=== PATIENT | female | born 1975 | race Caucasian/White ===

== ENCOUNTER 2022-08-18 03:27 | Outpatient (CLI) | payer SELFPAY | END 2022-08-18 03:28 | disposition home or self-care (01) | LOC: AMB 09-16 11:19 | PROVIDERS: Visit Provider Family Medicine | DX: S59.911A Unspecified injury of right forearm, initial encounter (principal); W10.9XXA Fall (on) (from) unspecified stairs and steps, initial encounter; Z91.81 History of falling; Y92.9 Unspecified place or not applicable | CPT/HCPCS: A0425; A0429 ==

== ENCOUNTER 2022-08-18 04:16 | Emergency (ER) | payer SELFPAY ==
[2022-08-18] VITALS (29 sets, daily range): BP systolic 108–169; BP diastolic 67–111; PULSE 85–128; RESP 12–18; TEMP 36.1–37.6; O2SAT 89–102
--- NOTE | 2022-08-18 04:35 | CRLHL7_ITS ---
For Patients: As a result of the Century Cures Act, medical imaging exams and procedure reports are released immediately into your electronic medical record. You may view this report before your referring provider. If you have questions, please contact your health care provider. INDICATION: Deformity COMPARISON: None available. TECHNIQUE: AP and lateral views of the right humerus were obtained for a total of two views. There is no sign of humeral shaft fracture. There is anterior and inferior dislocation of the humeral head, with no sign of Hill-Sachs or bony Bankart fracture. The elbow is seen on the lateral view in the oblique projection. It is grossly normal in appearance. The soft tissue planes are preserved. There is no opaque foreign body. IMPRESSION: Anterior and inferior dislocation of the humeral head with no sign of associated fracture. Dictated by Mendez Sumner MD @ 08/18/2022 6:48:15 AM (Electronically Signed)
--- NOTE | 2022-08-18 04:35 | CRLHL7_ITS ---
For Patients: As a result of the Cures Act, medical imaging exams and procedure reports are released immediately into your electronic medical record. You may view this report before your referring provider. If you have questions, please contact your health care provider. INDICATION: Deformity postreduction. COMPARISON: Right humerus from earlier today at inferior 0435 hours TECHNIQUE: The right shoulder was examined with AP internal and external rotation views for a total of two views at 0520 hours. FINDINGS: There is now anatomic alignment of the humeral head and glenoid. The osseous structures are in anatomic alignment without fracture or dislocation. The visualized chest is clear. IMPRESSION: Satisfactory appearance status post reduction of previously seen shoulder dislocation. Dictated by Mendez Sumner MD @ 08/18/2022 6:50:20 AM (Electronically Signed)
[2022-08-18] MEDS: ONDANSETRON 2 MG/ML inj 4 MG IVP (04:41)
[2022-08-18] MEDS: PROPOFOL 10 MG/ML INJ 150 MG IV (05:00)
[2022-08-18] MEDS: SUCCINYLCHOLINE 20 MG/ML INJ 120 MG IVP (05:00)
[2022-08-18 05:01] LABS: Basophils Absolute Auto 0.04 K/uL (0.00-0.30); Basophils Percent Auto 0.4 % (0.0-3.0); Eosinophils Absolute Auto 0.08 K/uL (0.00-0.50); Eosinophils Percent Auto 0.8 % (0.0-7.0); Hematocrit 36.3 % (33.0-51.0); Hemoglobin* 11.1 gm/dL (12.0-16.0); Immature Granulocytes Abs Auto 0.02 K/uL (0.00-0.30); Lymphocytes Absolute Auto 2.89 K/uL (0.90-2.90); Lymphocytes Percent Auto 27.4 % (20-44); Mean Corpuscular HGB Conc 31 gm/dL (32-36); Mean Corpuscular Hemoglobin 22 pg (26-34); Mean Corpuscular Volume 73 fL (80-100); Monocytes Percent Auto 5.7 % (0.0-11.0); Neutrophils Absolute Auto 6.93 K/uL (1.7-7.0); Neutrophils Percent Auto 65.5 % (42.0-72.0); Platelet Count* 435 K/uL (140-440); Red Blood Count 4.98 m/uL (4.00-5.20); Slide Review Reflex No; White Blood Count* 10.56 K/uL (4.50-11.00)
[2022-08-18] MEDS: KETAMINE HCL 100 MG/ML inj 20 MG IV (05:13)
--- NOTE | 2022-08-18 05:18 | CRLHL7_ITS ---
For Patients: As a result of the Century Cures Act, medical imaging exams and procedure reports are released immediately into your electronic medical record. You may view this report before your referring provider. If you have questions, please contact your health care provider. Indication: Status post reduction of dislocated shoulder with decreased pulses in the right upper extremity. Evaluate for dissection. Technique: CT angiography is performed during the uneventful intravenous administration of 95 cc of Isovue 370 while spiral acquisition is obtained. 1.5 millimeter thick axial, sagittal, and coronal sections are obtained. Please note that all CT scans at this facility use dose modulation, iterative reconstruction, and/or weight-based dosing when appropriate to reduce radiation dose to as low as reasonably achievable. Comparison: Plain films of the shoulder from today. Findings: The right subclavian and right axillary artery are widely patent, with no sign of dissection or occlusion. There is a subtle, comminuted, nondisplaced fracture of the superior-anterior aspect of the right humeral head, not evident on the previous plain films even in retrospect. There is no sign of a bony Bankart fracture. The rest of the osseous structures of the shoulder are normal in appearance. There is anatomic alignment of the humeral head and glenoid. The visualized upper chest is clear. Impression: Widely patent right subclavian and axillary arteries with no sign of occlusion or dissection. Acute, comminuted, nondisplaced fracture of the anterior-superior aspect of the right humeral head. Please note that all CT scans at this facility use dose modulation, iterative reconstruction, and/or weight-based dosing when appropriate to reduce radiation dose to as low as reasonably achievable. Dictated by Mendez Sumner MD @ 08/18/2022 7:04:35 AM (Electronically Signed)
--- NOTE | 2022-08-18 05:20 | CT_ITS ---
Patient: SMILEY YANEZ Facility:?[facility] Patient ID:?[id number] Site Patient ID:?[id number]. Site :?[id number] Study:?CT-Spine Cervical -08/18/2022 6:21:14 AM Ordering Physician:Cal Garicas Final Report: CT CERVICAL SPINE DATE: 08/18/2022 HISTORY: Trauma. TECHNIQUE: Helical CT acquisition of the cervical spine was performed. Orozco and sagittal reformations were performed and interpreted. COMPARISON: None. FINDINGS: Images are degraded by patient motion. There is no evidence of acute displaced fracture or dislocation of the cervical spine. There is straightening of the normal cervical lordosis. The vertebral body height is maintained. There are scattered degenerative changes in the cervical spine. The visualized prevertebral soft tissues are unremarkable. The visualized lung apices are unremarkable. IMPRESSION: No acute displaced fracture or dislocation of the cervical spine. Please note that all CT scans at this facility use dose modulation, iterative reconstruction, and/or weight-based dosing when appropriate to reduce radiation dose to as low as reasonably achievable. Dictated by: Vickie Falcon MD @ 08/18/2022 06:47:05 Signed by:?Vickie Falcon MD @08/18/2022 6:47:05 AM (Electronic Signature)
--- NOTE | 2022-08-18 05:20 | CT_ITS ---
Patient: SMILEY YANEZ Facility:?[facility] Patient ID:?[id number] Site Patient ID:?[id number]. Site :?[id number] Study:?CT-Head -08/18/2022 6:21:12 AM Ordering Physician:Cal Garcias Final Report: CT HEAD DATE: 08/18/2022 CLINICAL HISTORY: Patient with fall. TECHNIQUE: Standard CT scanning of the head was performed. COMPARISON: None. FINDINGS: There is no intracranial hemorrhage. The lance matter-white matter differentiation is intact. The size of the ventricular system is normal for age. There is no mass effect or midline shift. The calvarium is unremarkable. The orbits are unremarkable. The paranasal sinuses are unremarkable. The mastoid air cells are unremarkable. The soft tissues are unremarkable. IMPRESSION: Normal head CT. Please note that all CT scans at this facility use dose modulation, iterative reconstruction, and/or weight-based dosing when appropriate to reduce radiation dose to as low as reasonably achievable. Dictated by: Vickie Falcon MD @ 08/18/2022 06:43:32 Signed by:?Vickie Falcon MD @08/18/2022 6:43:32 AM (Electronic Signature)
[2022-08-18 05:21] LABS: Albumin* 4.8 g/dL (3.3-5.0); Chloride* 107 mmol/L (96-114); Sodium* 143 mmol/L (135-149)
--- NOTE | 2022-08-18 05:21 | ED.FALL ---
HPI - Fall General Date Seen: 08/18/22 <Katerine Godinez MD - Last Filed: 08/18/22 09:05> Chief Complaint: Fall/Minor Trauma <Katerine Godinez MD - Last Filed: 08/18/22 09:05> Stated Complaint: fall <Katerine Godinez MD - Last Filed: 08/18/22 09:05> Time Seen by Provider: 08/18/22 04:35 <Katerine Godinez MD - Last Filed: 08/18/22 09:05> Source: patient, family, EMS, RN notes reviewed, old records reviewed and science interpreter <Katerine Godinez MD - Last Filed: 08/18/22 09:05> Mode of arrival: EMS <Katerine Godinez MD - Last Filed: 08/18/22 09:05> Limitations: language barrier and altered mental status (Intoxication) <Katerine Godinez MD - Last Filed: 08/18/22 09:05> History of Present Illness HPI Narrative: Ileana is a 47-year-old female who tells me that she is usually healthy who comes to the emergency room via EMS for a right shoulder dislocation/injury as well as intoxication. Patient was using alcohol tonight. This is not something that she does often according to a family friend. She fell going into her trailer at [facility] which caused a laceration to her right mormon as well as an injury to her right arm. She did not lose consciousness and she has not had any vomiting. EMS notes that patient has a cold right forearm and patient must hold her arm in abduction and external rotation. She says she cannot feel her feet hand or move it. I am unsure what time this occurred but I do meet patient upon EMS arrival. Patient denies back pain hip pain headache but does state her neck hurts. Patient notes that she cannot feel her arm or her hand. She states it feels like it is sleeping. She also is unable to move her fingers or wrist. <Katerine Godinez MD - Last Filed: 08/18/22 09:05> MD complaint: fall <Katerine Godinez MD - Last Filed: 08/18/22 09:05> Fall witnessed: yes, by family <Katerine Godinez MD - Last Filed: 08/18/22 09:05> Place fall occurred: home <Katerine Godinez MD - Last Filed: 08/18/22 09:05> Loss of consciousness: No <Katerine Godinez MD - Last Filed: 08/18/22 09:05> Related Data Home Medications: Home Medications Medication Instructions Recorded Confirmed No Known Home Medications 08/18/22 08/18/22 <Katerine Godinez MD - Last Filed: 08/18/22 09:05> Allergies/Adverse Reactions: Allergies Allergy/AdvReac Type Severity Reaction Status Date / Time No Known Drug Allergies Allergy Verified 08/18/22 04:39 <Katerine Godinez MD - Last Filed: 08/18/22 09:05> Review of Systems Status of ROS: Reports: 10 or more systems reviewed and unremarkable except as noted in History and below <Katerine Godinez MD - Last Filed: 08/18/22 09:05> Const: Denies: fever or chills <Katerine Godinez MD - Last Filed: 08/18/22 09:05> Eyes: Denies: change in vision or blurry vision <Katerine Godinez MD - Last Filed: 08/18/22 09:05> ENMT: Reports: neck pain (When asked.); Denies: throat pain or difficulty swallowing <Katerine Godinez MD - Last Filed: 08/18/22 09:05> Cardio: Denies: chest pain, palpitations or shortness of breath with exertion <Katerine Godinez MD - Last Filed: 08/18/22 09:05> Resp: Denies: shortness of breath, cough or wheezing <Katerine Godinez MD - Last Filed: 08/18/22 09:05> GI: Denies: abdominal pain, nausea, vomiting or difficulty swallowing <Katerine Godinez MD - Last Filed: 08/18/22 09:05> Musculo: Reports: neck pain (When asked.) <Katerine Godinez MD - Last Filed: 08/18/22 09:05> Neuro: Reports: numbness in extremities; Denies: headache <Katerine Godinez MD - Last Filed: 08/18/22 09:05> Allergy/Immuno: Denies: wheezing <Katerine Godinez MD - Last Filed: 08/18/22 09:05> [facility] Social History: Social History Smoking Status: Unknown if ever smoked Do you use any of these nicotine containing products: None How often do you have a drink containing alcohol: 2-3 times a week How often do you have six or more drinks on one occasion: Never AUDIT-C Alcohol total score: 3 Non-prescribed substance use: denies use service: No <Katerine Godinez MD - Last Filed: 08/18/22 09:05> Exam Const: Vital Signs, click to edit/add: Vital Signs - 24 hr 08/18/22 04:17 08/18/22 04:47 08/18/22 06:47 Temperature 97.0 F L Pulse Rate [Left P ulse Oximeter] 85 Respiratory Rate 18 Blood Pressure [Le ft Forearm] 143/94 H Pulse Oximetry 98 99 97 Oxygen Delivery Me thod Room Air Room Air Oxygen Flow Rate 08/18/22 04:39 08/18/22 05:15 08/18/22 05:10 Temperature Pulse Rate [Left P ulse Oximeter] 128 H 128 H Respiratory Rate 16 18 Blood Pressure [Le ft Forearm] 154/106 H 169/111 H Pulse Oximetry 98 100 100 Oxygen Delivery Me thod Room Air Nasal Cannula Ambu-Bag Oxygen Flow Rate 2 08/18/22 05:05 08/18/22 06:10 08/18/22 04:57 Temperature Pulse Rate [Left P ulse Oximeter] 126 H 116 H 125 H Respiratory Rate 18 16 18 Blood Pressure [Le ft Forearm] 152/102 H 142/89 H 144/89 H Pulse Oximetry 100 99 99 Oxygen Delivery Me thod Ambu-Bag Room Air Room Air Oxygen Flow Rate 08/18/22 05:03 08/18/22 04:45 08/18/22 07:31 Temperature Pulse Rate [Left P ulse Oximeter] 128 H 102 H Respiratory Rate 18 18 Blood Pressure [Le ft Forearm] 123/77 119/74 Pulse Oximetry 100 99 97 Oxygen Delivery Me thod Ambu-Bag Room Air Oxygen Flow Rate 08/18/22 07:00 08/18/22 06:10 08/18/22 09:30 Temperature Pulse Rate [Left P ulse Oximeter] 108 H 116 H 102 H Respiratory Rate 12 Blood Pressure [Le ft Forearm] 135/79 142/89 H 127/80 Pulse Oximetry 99 100 102 H Oxygen Delivery Me thod Room Air Room Air Room Air Oxygen Flow Rate 08/18/22 09:00 08/18/22 08:30 08/18/22 08:00 Temperature Pulse Rate [Left P ulse Oximeter] 97 87 100 Respiratory Rate Blood Pressure [Le ft Forearm] 108/71 112/70 116/67 Pulse Oximetry 97 92 Oxygen Delivery Me thod Room Air Room Air Oxygen Flow Rate <Katerine Godinez MD - Last Filed: 08/18/22 09:05> Vital Signs, click to edit/add: Vital Signs - 24 hr 08/18/22 04:17 08/18/22 04:47 08/18/22 06:47 Temperature 97.0 F L Pulse Rate [Left P ulse Oximeter] 85 Respiratory Rate 18 Blood Pressure [Le ft Forearm] 143/94 H Pulse Oximetry 98 99 97 Oxygen Delivery Me thod Room Air Room Air Oxygen Flow Rate 08/18/22 04:39 08/18/22 05:15 08/18/22 05:10 Temperature Pulse Rate [Left P ulse Oximeter] 128 H 128 H Respiratory Rate 16 18 Blood Pressure [Le ft Forearm] 154/106 H 169/111 H Pulse Oximetry 98 100 100 Oxygen Delivery Me thod Room Air Nasal Cannula Ambu-Bag Oxygen Flow Rate 2 08/18/22 05:05 08/18/22 06:10 08/18/22 04:57 Temperature Pulse Rate [Left P ulse Oximeter] 126 H 116 H 125 H Respiratory Rate 18 16 18 Blood Pressure [Le ft Forearm] 152/102 H 142/89 H 144/89 H Pulse Oximetry 100 99 99 Oxygen Delivery Me thod Ambu-Bag Room Air Room Air Oxygen Flow Rate 08/18/22 05:03 08/18/22 04:45 08/18/22 07:31 Temperature Pulse Rate [Left P ulse Oximeter] 128 H 102 H Respiratory Rate 18 18 Blood Pressure [Le ft Forearm] 123/77 119/74 Pulse Oximetry 100 99 97 Oxygen Delivery Me thod Ambu-Bag Room Air Oxygen Flow Rate 08/18/22 07:00 08/18/22 06:10 08/18/22 09:30 Temperature Pulse Rate [Left P ulse Oximeter] 108 H 116 H 102 H Respiratory Rate 12 Blood Pressure [Le ft Forearm] 135/79 142/89 H 127/80 Pulse Oximetry 99 100 102 H Oxygen Delivery Me thod Room Air Room Air Room Air Oxygen Flow Rate 08/18/22 09:00 08/18/22 08:30 08/18/22 08:00 Temperature Pulse Rate [Left P ulse Oximeter] 97 87 100 Respiratory Rate Blood Pressure [Le ft Forearm] 108/71 112/70 116/67 Pulse Oximetry 97 92 Oxygen Delivery Me thod Room Air Room Air Oxygen Flow Rate <Santa Monreal MD - Last Filed: 08/18/22 10:53> Documenting provider has reviewed patient's vital signs: yes <Katerine Godinez MD - Last Filed: 08/18/22 09:05> Exam limitations: altered mental status (Intoxication.) and language barrier (Family friend initially helps. Formal science interpreter then called) <Katerine Godinez MD - Last Filed: 08/18/22 09:05> General appearance: cooperative, well kempt and in distress (With movement of right arm) <Katerine Godinez MD - Last Filed: 08/18/22 09:05> Orientation/consciousness: Yes awake, Yes oriented to person and Yes oriented to place <Katerine Godinez MD - Last Filed: 08/18/22 09:05> HENMT: Common normals: normocephalic, external ears normal and external nose normal <Katerine Godinez MD - Last Filed: 08/18/22 09:05> Head and scalp: normocephalic and laceration (1 cm laceration to the right mormon. Metastatic); no Castaneda's sign <Katerine Godinez MD - Last Filed: 08/18/22 09:05> Face and sinus: normal facial exam <Katerine Godinez MD - Last Filed: 08/18/22 09:05> Nose: external nose normal <Katerine Godinez MD - Last Filed: 08/18/22 09:05> External ear: external ears normal <Katerine Godinez MD - Last Filed: 08/18/22 09:05> Mouth: oral and palatal mucosa normal <Katerine Godinez MD - Last Filed: 08/18/22 09:05> Teeth and gingiva: gingiva abnormal (Hyperplasia) <Katerine Godinez MD - Last Filed: 08/18/22 09:05> Throat: posterior oropharynx normal <Katerine Godinez MD - Last Filed: 08/18/22 09:05> Eye: Common normals: PERRL (Slightly sluggish) and EOMs intact bilaterally <Katerine Godinez MD - Last Filed: 08/18/22 09:05> General eye: normal appearance of both eyes <Katerine Godinez MD - Last Filed: 08/18/22 09:05> Pupil: PERRL (Slightly sluggish) <Katerine Godinez MD - Last Filed: 08/18/22 09:05> Neck & C-Spine: Common normals: no lymphadenopathy and supple <Katerine Godinez MD - Last Filed: 08/18/22 09:05> General: normal visual inspection and trachea midline <Katerine Godinez MD - Last Filed: 08/18/22 09:05> Other: Attempts at collar placement not successful. Appeared to increase patient discomfort and thus we did place blocks on each side of her head. <Katerine Godinez MD - Last Filed: 08/18/22 09:05> Resp: Common normals: normal respiratory effort and clear to auscultation bilaterally <MD Joss Lemus Last Filed: 08/18/22 09:05> Auscultation: clear to auscultation bilaterally <Katerine Godinez MD - Last Filed: 08/18/22 09:05> Cardio: Common normals: regular rate and regular rhythm <MD Joss Lemus Last Filed: 08/18/22 09:05> Rate: regular rate <MD Joss Lemus Last Filed: 08/18/22 09:05> Rhythm: regular rhythm <MD Joss Lemus Last Filed: 08/18/22 09:05> GI: Common normals: soft to palpation and non-tender <MD Joss Lemus Last Filed: 08/18/22 09:05> Palpation: soft <Katerine Godinez MD - Last Filed: 08/18/22 09:05> : Common normals: no CVA tenderness <Katerine Godinez MD - Last Filed: 08/18/22 09:05> Bladder/kidney exam: no CVA tenderness; no CVA tenderness <Katerine Godinez MD - Last Filed: 08/18/22 09:05> Back & Pelvis: Common normals: no CVA tenderness, thoracic and lumbar spine normal to inspection and no thoracic nor lumbar tenderness <Katerine Godinez MD - Last Filed: 08/18/22 09:05> General back: no CVA tenderness <Katerine Godinez MD - Last Filed: 08/18/22 09:05> Extremity: General: normal exam except as noted <Katerine Godinez MD - Last Filed: 08/18/22 09:05> Right upper extremity: shoulder joint Right shoulder joint exam: neurovascular exam <Katerine Godinez MD - Last Filed: 08/18/22 09:05> Other: Right arm is held in abduction and external rotation. Forearm and hand cold to the touch. Pulse is present at the radius. Patient unable to move hand or fingers wrist or elbow. <Katerine Godinez MD - Last Filed: 08/18/22 09:05> Neuro: Sensorium/orientation: awake, oriented to person and oriented to place <Katerine Godinez MD - Last Filed: 08/18/22 09:05> Speech: abnormal speech Details: slurred <Katerine Godinez MD - Last Filed: 08/18/22 09:05> Psych: Common normals: cooperative <Katerine Godinez MD - Last Filed: 08/18/22 09:05> Appearance: well kempt <Katerine Godinez MD - Last Filed: 08/18/22 09:05> Attitude: calm <Katerine Godinez MD - Last Filed: 08/18/22 09:05> Activity/motor behavior: appropriate eye contact <MD Joss Lemus Last Filed: 08/18/22 09:05> Speech: slurred <Katerine Godinez MD - Last Filed: 08/18/22 09:05> Thought process: circumstantial <Katerine Godinez MD - Last Filed: 08/18/22 09:05> Thought content: normal thought content <Katerine Godinez MD - Last Filed: 08/18/22 09:05> Attention/concentration: concentration grossly intact <Katerine Godinez MD - Last Filed: 08/18/22 09:05> Memory/cognition: memory grossly intact <Katerine Godinez MD - Last Filed: 08/18/22 09:05> Insight: fair <Katerine Godinez MD - Last Filed: 08/18/22 09:05> Judgement: fair <Katerine Godinez MD - Last Filed: 08/18/22 09:05> Course Course Hospital Course: At this time patient is presenting with what appears to be an inferior shoulder dislocation. Likely has axillary nerve and possibly arterial injury. Anesthesia contacted as we need to expedite reduction of this dislocation. At this time would also like to expedite head and cervical spine CTs given the circumstances. However I feel that the shoulder dislocation takes precedence at this time. Will also check laboratory values to include CBC, comprehensive panel, EtOH, urinalysis, and serum HCG. Patient will be placed on monitor and have IV placed. Orthopedics will also be consulted. Well patient has a friend of the family doing some interpretation for informed consent of intubation, deep sedation, reduction of shoulder dislocation I did call on the official science interpreter for discussion regarding risks benefits. Patient unable to sign form as her right arm is compromised with injury and her left arm has a small IV that we would not want her to be moving quite a bit. She does agree in the presence of witnesses to go through with what we are suggesting. <Katerine Godinez MD - Last Filed: 08/18/22 09:05> Reevaluation(s) Reevaluation #1: Post reductio films are reassuring and appear to show successful reduction. Patient still has no motor or sensation right arm and hand. <Katerine Godinez MD - Last Filed: 08/18/22 09:05> Time: 07:45 <Katerine Godinez MD - Last Filed: 08/18/22 09:05> Reevaluation #3: Patient noted to have regained sensation of the volar and dorsal forearm as well as the dorsal hand. She is still lacking motor of the wrist fingers and hand. <Katerine Godinez MD - Last Filed: 08/18/22 09:05> Additional Reevaluation(s): patient was re-evaluated at 10:00 a.m., she still has not regained any motor function of the hand. She does have motor function at the shoulder. I did speak to Dr. West at [facility] who recommended patient be transferred for further evaluation. I discussed transferring with the patient as well as her , they prefer to go by private vehicle. Therefore patient is discharged from our ER as a transfer to [facility] for further evaluation given complete lack of motor function of the right hand. <Santa Monreal MD - Last Filed: 08/18/22 10:53> Consultations Consultation #1: Orthopedics-discussed urgency of reduction. Requested further advice on the use of CTA to evaluate for large vessel injury. Ortho agrees with need for CTA and suggests transfer for any injury. <Katerine Godinez MD - Last Filed: 08/18/22 09:05> Consultation #2: Anesthesia-patient has been eating and drinking and is not in p.o.. Given her alcohol level is 0.35 I think she represents high risk of vomiting and potential aspiration. Anesthesia notes they are suggesting intubation. We used propofol and succinylcholine. Will have fentanyl on standby to be used as needed. <Katerine Godinez MD - Last Filed: 08/18/22 09:05> Consultation #3: [facility]-did speak with ED physician in regards to patient's persisting neurological symptoms. At that timed sensation had not returned. We discussed possible role of steroids but there is no role for steroids in this particular instance. They do suggest monitoring over the next few hours and if motor and sensation do not return suggest calling them back. Otherwise plan if motor and station returns is to discharge home with follow-up with orthopedics. <Katerine Godinez MD - Last Filed: 08/18/22 09:05> Vital Signs Vital signs: Initial Vital Signs Temperature 97.0 F L 08/18/22 04:17 Temperature Source Temporal Artery Scan 08/18/22 04:17 Pulse Rate 85 08/18/22 04:17 Pulse Rhythm 08/18/22 04:17 Respiratory Rate 18 08/18/22 04:17 Blood Pressure 143/94 H 08/18/22 04:17 Blood Pressure Mean 110 08/18/22 04:17 Blood Pressure Position Supine 08/18/22 04:17 Pulse Oximetry 98 08/18/22 04:17 Oxygen Delivery Method 08/18/22 04:17 Vital Signs Temperature 97.0 F L 08/18/22 04:17 Pulse Rate 85 08/18/22 04:17 Respiratory Rate 18 08/18/22 04:17 Blood Pressure 143/94 H 08/18/22 04:17 Pulse Oximetry 98 08/18/22 04:17 Oxygen Delivery Method 08/18/22 04:17 Temperature 97.0 F L 08/18/22 04:17 Pulse Rate 102 H 08/18/22 09:30 Respiratory Rate 18 08/18/22 07:31 Blood Pressure 127/80 08/18/22 09:30 Pulse Oximetry 102 H 08/18/22 09:30 Oxygen Delivery Method 08/18/22 09:30 Oxygen Flow Rate 2 08/18/22 05:15 <Katerine Godinez MD - Last Filed: 08/18/22 09:05> Initial Vital Signs Temperature 97.0 F L 08/18/22 04:17 Temperature Source Temporal Artery Scan 08/18/22 04:17 Pulse Rate 85 08/18/22 04:17 Pulse Rhythm 08/18/22 04:17 Respiratory Rate 18 08/18/22 04:17 Blood Pressure 143/94 H 08/18/22 04:17 Blood Pressure Mean 110 08/18/22 04:17 Blood Pressure Position Supine 08/18/22 04:17 Pulse Oximetry 98 08/18/22 04:17 Oxygen Delivery Method 08/18/22 04:17 Vital Signs Temperature 97.0 F L 08/18/22 04:17 Pulse Rate 85 08/18/22 04:17 Respiratory Rate 18 08/18/22 04:17 Blood Pressure 143/94 H 08/18/22 04:17 Pulse Oximetry 98 08/18/22 04:17 Oxygen Delivery Method 08/18/22 04:17 Temperature 97.0 F L 08/18/22 04:17 Pulse Rate 102 H 08/18/22 09:30 Respiratory Rate 18 08/18/22 07:31 Blood Pressure 127/80 08/18/22 09:30 Pulse Oximetry 102 H 08/18/22 09:30 Oxygen Delivery Method 08/18/22 09:30 Oxygen Flow Rate 2 08/18/22 05:15 <Santa Monreal MD - Last Filed: 08/18/22 10:53> MDM - Fall MDM Narrative Medical decision making narrative: 1. Right shoulder dislocation with neurological and circulatory compromise-initially patient has a cold forearm and hand. Unable to move at the wrist or the hand. EMS notes that when they tried to move patient's arm or adduct arm, pulse was lost. Successful reduction with this assistance of Anesthesia. Pulse immediately strong. CT angiogram with no evidence of vessel compromise. 2. Axillary nerve injury- Patient initially had no improvement in her motor or sensation post reduction. At 0745 it is noted that her sensation is starting to return. However still persisting lack of motor movement at wrist and hands at this time. . Patient will be monitored for continued improvement we are hoping. Will consult with [facility] again, Dr. West ED physician if patient does not have return of motor function. I did discuss possibility of permanent nerve injury with this patient via official science interpreter. If she has improvement she will be discharged home with a shoulder immobilizer, Creswell for pain control, and directions for follow-up with orthopedics. She may also ice her axilla and shoulder as needed for pain. 3. Humeral head fracture-this is nondisplaced. Initial films did not show this injury but CT angiogram did. Discussed with patient. Patient may use Creswell 5/325, 1-2 tablets p.o. q.4-6 hours p.r.n. 18. Via CEINT. 4. Alcohol intoxication-patient has an alcohol level of 0.35. Will give 1 L normal saline. Zofran 4 mg given upon patient arrival. Discussed with patient's importance of sub staining from alcohol while using narcotic pain medications. She denies history of withdrawal. She denies daily drinking. LFTs within normal limits. 1 L of normal saline given in the ED. 5. Head laceration-initial steps to suture laceration. However, I do think that gluing would give similar result. Thus this is cleansed explored and Dermabond is placed with good wound closure. Will check on tetanus status. 4. Disposition -patient will be discharged home should she start noting improvement of motor function of the right wrist and hand. This patient is signed out to my partner Dr. Monreal for disposition. <Katerine Godinez MD - Last Filed: 08/18/22 09:05> 1. Right shoulder dislocation with neurological and circulatory compromise-initially patient has a cold forearm and hand. Unable to move at the wrist or the hand. EMS notes that when they tried to move patient's arm or adduct arm, pulse was lost. Successful reduction with this assistance of Anesthesia. Pulse immediately strong. CT angiogram with no evidence of vessel compromise. 2. Axillary nerve injury- Patient initially had no improvement in her motor or sensation post reduction. At 0745 it is noted that her sensation is starting to return. However still persisting lack of motor movement at wrist and hands at this time. . Patient will be monitored for continued improvement we are hoping. Will consult with [facility] again, Dr. West ED physician if patient does not have return of motor function. I did discuss possibility of permanent nerve injury with this patient via official science interpreter. If she has improvement she will be discharged home with a shoulder immobilizer, Creswell for pain control, and directions for follow-up with orthopedics. She may also ice her axilla and shoulder as needed for pain. 3. Humeral head fracture-this is nondisplaced. Initial films did not show this injury but CT angiogram did. Discussed with patient. Patient may use Creswell 5/325, 1-2 tablets p.o. q.4-6 hours p.r.n. 18. Via CEINT. 4. Alcohol intoxication-patient has an alcohol level of 0.35. Will give 1 L normal saline. Zofran 4 mg given upon patient arrival. Discussed with patient's importance of sub staining from alcohol while using narcotic pain medications. She denies history of withdrawal. She denies daily drinking. LFTs within normal limits. 1 L of normal saline given in the ED. 5. Head laceration-initial steps to suture laceration. However, I do think that gluing would give similar result. Thus this is cleansed explored and Dermabond is placed with good wound closure. Will check on tetanus status. 4. Disposition - Patient transferred to [facility] via private vehicle secondary to lack of motor function of right hand. Her driving. <Santa Monreal MD - Last Filed: 08/18/22 10:53> Medical Records Attestation: I reviewed the patient's medical records. <Katerine Godinez MD - Last Filed: 08/18/22 09:05> Lab Data Attestation: I reviewed the patient's lab results. <Katerine Godinez MD - Last Filed: 08/18/22 09:05> Labs: Lab Results 08/18/22 08/18/22 08/18/22 Range/Units 04:40 04:40 06:40 WBC 10.56 (4.50-11.00) K/uL RBC 4.98 (4.00-5.20) m/uL Hgb 11.1 L (12.0-16.0) gm/dL Hct 36.3 (33.0-51.0) % MCV 73 L (80-100) fL MCH 22 L (26-34) pg MCHC 31 L (32-36) gm/dL RDW Coeff of Zoë 18.0 H (11.5-15.5) % Plt Count 435 (140-440) K/uL Neut % (Auto) 65.5 (42.0-72.0) % Lymph % (Auto) 27.4 (20-44) % Gove % (Auto) 5.7 (0.0-11.0) % Eos % (Auto) 0.8 (0.0-7.0) % Baso % (Auto) 0.4 (0.0-3.0) % Neut # (Auto) 6.93 (1.7-7.0) K/uL Lymph # (Auto) 2.89 (0.90-2.90) K/uL Gove # (Auto) 0.60 (0.00-0.90) K/UL Eos # (Auto) 0.08 (0.00-0.50) K/uL Baso # (Auto) 0.04 (0.00-0.30) K/uL Abs Immat Gran (auto) 0.02 (0.00-0.30) K/uL Sodium 143 (135-149) mmol/L Potassium 3.4 L (3.6-5.1) mmol/L Chloride 107 (96-114) mmol/L Carbon Dioxide 18 L (20-32) mmol/L BUN 5 (5-24) mg/dL Creatinine 0.4 L (0.5-1.5) mg/dL Estimated GFR 124 ml/min Glucose 138 H (60-115) mg/dL Calcium 8.7 (8.4-10.6) mg/dL Total Bilirubin 0.1 (0.1-1.5) mg/dL AST 33 (12-35) U/L ALT 29 (4-35) U/L Alkaline Phosphatase 135 (40-150) U/L Total Protein 9.3 H (6.0-8.3) g/dL Albumin 4.8 (3.3-5.0) g/dL HCG, Qual (Negative) Urine Color Yellow (Yellow) Urine Appearance Clear (Clear) Urine pH 5.5 (5.0-8.5) Ur Specific [place] 1.010 (1.000-1.030) Urine Protein Negative (Negative) Urine Glucose (UA) Negative (Negative) Urine Ketones Negative (Negative) Urine Blood 1+ A (Negative) Urine Nitrite Negative (Negative) Urine Bilirubin Negative (Negative) Urine Urobilinogen 0.2 (0.2-1.0) Ur Leukocyte Esterase Negative (Negative) Urine RBC 0-2 (0-2) Urine WBC 0-2 (0-5) Ur Squamous Epith Cells Few (None-Few) Other Sediment FEW YEAST (None) Urine Bacteria Few A (None) Urine Opiates Screen (Negative) Ur Oxycodone Screen (Negative) Urine Methadone Screen (Negative) Ur Propoxyphene Screen (Negative) Ur Barbiturates Screen (Negative) U Tricyclic Antidepress (Negative) Ur Phencyclidine Scrn (Negative) Ur Amphetamines Screen (Negative) U Methamphetamines Scrn (Negative) U Benzodiazepines Scrn (Negative) Urine Cocaine Screen (Negative) U Marijuana (THC) Screen (Negative) Ur Drug Screen Comment Ethyl Alcohol 0.35 H* (0.01-0.03) % 08/18/22 08/18/22 Range/Units 06:40 06:40 WBC (4.50-11.00) K/uL RBC (4.00-5.20) m/uL Hgb (12.0-16.0) gm/dL Hct (33.0-51.0) % MCV (80-100) fL MCH (26-34) pg MCHC (32-36) gm/dL RDW Coeff of Zoë (11.5-15.5) % Plt Count (140-440) K/uL Neut % (Auto) (42.0-72.0) % Lymph % (Auto) (20-44) % Gove % (Auto) (0.0-11.0) % Eos % (Auto) (0.0-7.0) % Baso % (Auto) (0.0-3.0) % Neut # (Auto) (1.7-7.0) K/uL Lymph # (Auto) (0.90-2.90) K/uL Gove # (Auto) (0.00-0.90) K/UL Eos # (Auto) (0.00-0.50) K/uL Baso # (Auto) (0.00-0.30) K/uL Abs Immat Gran (auto) (0.00-0.30) K/uL Sodium (135-149) mmol/L Potassium (3.6-5.1) mmol/L Chloride (96-114) mmol/L Carbon Dioxide (20-32) mmol/L BUN (5-24) mg/dL Creatinine (0.5-1.5) mg/dL Estimated GFR ml/min Glucose (60-115) mg/dL Calcium (8.4-10.6) mg/dL Total Bilirubin (0.1-1.5) mg/dL AST (12-35) U/L ALT (4-35) U/L Alkaline Phosphatase (40-150) U/L Total Protein (6.0-8.3) g/dL Albumin (3.3-5.0) g/dL HCG, Qual Negative (Negative) Urine Color (Yellow) Urine Appearance (Clear) Urine pH (5.0-8.5) Ur Specific [place] (1.000-1.030) Urine Protein (Negative) Urine Glucose (UA) (Negative) Urine Ketones (Negative) Urine Blood (Negative) Urine Nitrite (Negative) Urine Bilirubin (Negative) Urine Urobilinogen (0.2-1.0) Ur Leukocyte Esterase (Negative) Urine RBC (0-2) Urine WBC (0-5) Ur Squamous Epith Cells (None-Few) Other Sediment (None) Urine Bacteria (None) Urine Opiates Screen Negative (Negative) Ur Oxycodone Screen Negative (Negative) Urine Methadone Screen Negative (Negative) Ur Propoxyphene Screen Negative (Negative) Ur Barbiturates Screen Negative (Negative) U Tricyclic Antidepress Negative (Negative) Ur Phencyclidine Scrn Negative (Negative) Ur Amphetamines Screen Negative (Negative) U Methamphetamines Scrn Negative (Negative) U Benzodiazepines Scrn Negative (Negative) Urine Cocaine Screen Negative (Negative) U Marijuana (THC) Screen Negative (Negative) Ur Drug Screen Comment See Note Ethyl Alcohol (0.01-0.03) % <Katerine Godinez MD - Last Filed: 08/18/22 09:05> Lab Results 08/18/22 08/18/22 08/18/22 Range/Units 04:40 04:40 06:40 WBC 10.56 (4.50-11.00) K/uL RBC 4.98 (4.00-5.20) m/uL Hgb 11.1 L (12.0-16.0) gm/dL Hct 36.3 (33.0-51.0) % MCV 73 L (80-100) fL MCH 22 L (26-34) pg MCHC 31 L (32-36) gm/dL RDW Coeff of Zoë 18.0 H (11.5-15.5) % Plt Count 435 (140-440) K/uL Neut % (Auto) 65.5 (42.0-72.0) % Lymph % (Auto) 27.4 (20-44) % Gove % (Auto) 5.7 (0.0-11.0) % Eos % (Auto) 0.8 (0.0-7.0) % Baso % (Auto) 0.4 (0.0-3.0) % Neut # (Auto) 6.93 (1.7-7.0) K/uL Lymph # (Auto) 2.89 (0.90-2.90) K/uL Gove # (Auto) 0.60 (0.00-0.90) K/UL Eos # (Auto) 0.08 (0.00-0.50) K/uL Baso # (Auto) 0.04 (0.00-0.30) K/uL Abs Immat Gran (auto) 0.02 (0.00-0.30) K/uL Sodium 143 (135-149) mmol/L Potassium 3.4 L (3.6-5.1) mmol/L Chloride 107 (96-114) mmol/L Carbon Dioxide 18 L (20-32) mmol/L BUN 5 (5-24) mg/dL Creatinine 0.4 L (0.5-1.5) mg/dL Estimated GFR 124 ml/min Glucose 138 H (60-115) mg/dL Calcium 8.7 (8.4-10.6) mg/dL Total Bilirubin 0.1 (0.1-1.5) mg/dL AST 33 (12-35) U/L ALT 29 (4-35) U/L Alkaline Phosphatase 135 (40-150) U/L Total Protein 9.3 H (6.0-8.3) g/dL Albumin 4.8 (3.3-5.0) g/dL HCG, Qual (Negative) Urine Color Yellow (Yellow) Urine Appearance Clear (Clear) Urine pH 5.5 (5.0-8.5) Ur Specific [place] 1.010 (1.000-1.030) Urine Protein Negative (Negative) Urine Glucose (UA) Negative (Negative) Urine Ketones Negative (Negative) Urine Blood 1+ A (Negative) Urine Nitrite Negative (Negative) Urine Bilirubin Negative (Negative) Urine Urobilinogen 0.2 (0.2-1.0) Ur Leukocyte Esterase Negative (Negative) Urine RBC 0-2 (0-2) Urine WBC 0-2 (0-5) Ur Squamous Epith Cells Few (None-Few) Other Sediment FEW YEAST (None) Urine Bacteria Few A (None) Urine Opiates Screen (Negative) Ur Oxycodone Screen (Negative) Urine Methadone Screen (Negative) Ur Propoxyphene Screen (Negative) Ur Barbiturates Screen (Negative) U Tricyclic Antidepress (Negative) Ur Phencyclidine Scrn (Negative) Ur Amphetamines Screen (Negative) U Methamphetamines Scrn (Negative) U Benzodiazepines Scrn (Negative) Urine Cocaine Screen (Negative) U Marijuana (THC) Screen (Negative) Ur Drug Screen Comment Ethyl Alcohol 0.35 H* (0.01-0.03) % 08/18/22 08/18/22 Range/Units 06:40 06:40 WBC (4.50-11.00) K/uL RBC (4.00-5.20) m/uL Hgb (12.0-16.0) gm/dL Hct (33.0-51.0) % MCV (80-100) fL MCH (26-34) pg MCHC (32-36) gm/dL RDW Coeff of Zoë (11.5-15.5) % Plt Count (140-440) K/uL Neut % (Auto) (42.0-72.0) % Lymph % (Auto) (20-44) % Gove % (Auto) (0.0-11.0) % Eos % (Auto) (0.0-7.0) % Baso % (Auto) (0.0-3.0) % Neut # (Auto) (1.7-7.0) K/uL Lymph # (Auto) (0.90-2.90) K/uL Gove # (Auto) (0.00-0.90) K/UL Eos # (Auto) (0.00-0.50) K/uL Baso # (Auto) (0.00-0.30) K/uL Abs Immat Gran (auto) (0.00-0.30) K/uL Sodium (135-149) mmol/L Potassium (3.6-5.1) mmol/L Chloride (96-114) mmol/L Carbon Dioxide (20-32) mmol/L BUN (5-24) mg/dL Creatinine (0.5-1.5) mg/dL Estimated GFR ml/min Glucose (60-115) mg/dL Calcium (8.4-10.6) mg/dL Total Bilirubin (0.1-1.5) mg/dL AST (12-35) U/L ALT (4-35) U/L Alkaline Phosphatase (40-150) U/L Total Protein (6.0-8.3) g/dL Albumin (3.3-5.0) g/dL HCG, Qual Negative (Negative) Urine Color (Yellow) Urine Appearance (Clear) Urine pH (5.0-8.5) Ur Specific [place] (1.000-1.030) Urine Protein (Negative) Urine Glucose (UA) (Negative) Urine Ketones (Negative) Urine Blood (Negative) Urine Nitrite (Negative) Urine Bilirubin (Negative) Urine Urobilinogen (0.2-1.0) Ur Leukocyte Esterase (Negative) Urine RBC (0-2) Urine WBC (0-5) Ur Squamous Epith Cells (None-Few) Other Sediment (None) Urine Bacteria (None) Urine Opiates Screen Negative (Negative) Ur Oxycodone Screen Negative (Negative) Urine Methadone Screen Negative (Negative) Ur Propoxyphene Screen Negative (Negative) Ur Barbiturates Screen Negative (Negative) U Tricyclic Antidepress Negative (Negative) Ur Phencyclidine Scrn Negative (Negative) Ur Amphetamines Screen Negative (Negative) U Methamphetamines Scrn Negative (Negative) U Benzodiazepines Scrn Negative (Negative) Urine Cocaine Screen Negative (Negative) U Marijuana (THC) Screen Negative (Negative) Ur Drug Screen Comment See Note Ethyl Alcohol (0.01-0.03) % <Santa Monreal MD - Last Filed: 08/18/22 10:53> Imaging Data Shoulder x-ray: Attestation: I have reviewed the pertinent imaging results. <Katerine Godinez MD - Last Filed: 08/18/22 09:05> My impression: Inferior dislocation. No evidence of fracture. <Katerine Godinez MD - Last Filed: 08/18/22 09:05> Radiologist's impression: Anterior inferior dislocation <Katerine Godinez MD - Last Filed: 08/18/22 09:05> Humerus x-ray: Attestation: I have reviewed the pertinent imaging results. <Katerine oGdinez MD - Last Filed: 08/18/22 09:05> My impression: Inferior dislocation <Katerine Godinez MD - Last Filed: 08/18/22 09:05> Radiologist's impression: TECHNIQUE: AP and lateral views of the right humerus were obtained for a total of two views. There is no sign of humeral shaft fracture. There is anterior and inferior dislocation of the humeral head, with no sign of Hill-Sachs or bony Bankart fracture. The elbow is seen on the lateral view in the oblique projection. It is grossly normal in appearance. The soft tissue planes are preserved. There is no opaque foreign body. IMPRESSION: Anterior and inferior dislocation of the humeral head with no sign of associated fracture. <Katerine Godinez MD - Last Filed: 08/18/22 09:05> CT scan - head: Attestation: I have reviewed the pertinent imaging results. <Katerine Godinez MD - Last Filed: 08/18/22 09:05> My impression: No acute bleed or fracture. <Katerine Godinez MD - Last Filed: 08/18/22 09:05> Radiologist's impression: No acute findings <Katerine Godinez MD - Last Filed: 08/18/22 09:05> Cervical spine CT: Attestation: I have reviewed the pertinent imaging results. <Katerine Godinez MD - Last Filed: 08/18/22 09:05> My impression: No acute fractures <Katerine Godinez MD - Last Filed: 08/18/22 09:05> Radiologist's impression: No acute fractures <Katerine Godinez MD - Last Filed: 08/18/22 09:05> Post reduction shoulder: Attestation: I have reviewed the pertinent imaging results. <Katerine Godinez MD - Last Filed: 08/18/22 09:05> My impression: Humeral head appears to be back in anatomical position <Katerine Godinez MD - Last Filed: 08/18/22 09:05> Radiologist's impression: Successful post reduction <Katerine Godinez MD - Last Filed: 08/18/22 09:05> CTA shoulder: My impression: I am questioning possible nondisplaced fracture of the humeral head. However this may be normal anatomy. I do not note any occlusions of the vasculature. <Katerine Godinez MD - Last Filed: 08/18/22 09:05> Radiologist's impression: The right subclavian and right axillary artery are widely patent, with no sign of dissection or occlusion. There is a subtle, comminuted, nondisplaced fracture of the superior-anterior aspect of the right humeral head, not evident on the previous plain films even in retrospect. There is no sign of a bony Bankart fracture. The rest of the osseous structures of the shoulder are normal in appearance. There is anatomic alignment of the humeral head and glenoid. The visualized upper chest is clear. Impression: Widely patent right subclavian and axillary arteries with no sign of occlusion or dissection. Acute, comminuted, nondisplaced fracture of the anterior-superior aspect of the right humeral head. <Katerine Godinez MD - Last Filed: 08/18/22 09:05> Critical Care Time Critical Care Time Critical Care Time: Yes Attestation: The patient required my highest level preparedness to intervene emergently and I personally spent this critical care time directly and personally managing the patient. This critical care time included: Obtaining a history; Examining the patient; Pulse oximetry; Ordering and reviewing of studies; Arranging urgent treatment with development of a management plan; Evaluation of patients response to treatment; Frequent reassessment discussions with other providers. This critical care time was performed to assess and manage the high probability of imminent life-threatening deterioration that could result in multiorgan failure. It was exclusive of separate billable procedures and treating other patients and teaching time. <Katerine Godinez MD - Last Filed: 08/18/22 09:05> Total Critical Care Time in Minutes: 60 <Katerine Godinez MD - Last Filed: 08/18/22 09:05> Discharge Plan Discharge Clinical Impression: Alcohol intoxication, Laceration of face, Closed inferior dislocation of right shoulder <Katerine Godinez MD - Last Filed: 08/18/22 09:05> Patient Disposition: Xfer Other <Katerine Godinez MD - Last Filed: 08/18/22 09:05> Discharge Location: [facility] <Katerine Godinez MD - Last Filed: 08/18/22 09:05> Condition: Stable <Katerine Godinez MD - Last Filed: 08/18/22 09:05> Additional Instructions: 1. Shoulder fracture and dislocation-the fracture will not need to have surgery. The dislocation has been reduced and your shoulder is back in place. However, I worry that you may have nerve damage from this injury. Wear the shoulder immobilizer for comfort. Place ice on shoulder and under your armpit when resting. Do not place on bare skin. 2. Laceration-the glue will fall off on its own in approximately 7 days. Seek medical attention for signs of infection. 3. Transfer to [facility] for further evaluation given lack of motor function to the right hand. <Katerine Godinez MD - Last Filed: 08/18/22 09:05> Prescriptions: No Action No Known Home Medications <Katerine Godinez MD - Last Filed: 08/18/22 09:05> Stand Alone Forms: [facility] Info Instructions <Katerine Godinez MD - Last Filed: 08/18/22 09:05> Procedures Laceration Laceration 1: Pre procedure diagnosis: Right mormon laceration <Katerine Godinez MD - Last Filed: 08/18/22 09:05> Post procedure diagnosis: Right mormon laceration repair <Katerine Godinez MD - Last Filed: 08/18/22 09:05> Verification/time out: correct patient, correct site, correct procedure and time out performed <Katerine Godinez MD - Last Filed: 08/18/22 09:05> Name of person performing procedure: Katerine Godinez <Katerine Godinez MD - Last Filed: 08/18/22 09:05> Site: face <Katerine Godinez MD - Last Filed: 08/18/22 09:05> Side (If applicable): right <Katerine Godinez MD - Last Filed: 08/18/22 09:05> Size (cm): 1 <Katerine Godinez MD - Last Filed: 08/18/22 09:05> Description: linear <Katerine Godinez MD - Last Filed: 08/18/22 09:05> Pre-repair: wound explored and irrigated extensively <Katerine Godinez MD - Last Filed: 08/18/22 09:05> Specimens removed (if any): Dermabond used for repair of this wound. Patient tolerated procedure well. <Katerine Godinez MD - Last Filed: 08/18/22 09:05> Conclusion: patient tolerated procedure <Katerine Godinez MD - Last Filed: 08/18/22 09:05> Orthopedic Joint Reduction Joint #1: Written consent by: patient <Katerine Godinez MD - Last Filed: 08/18/22 09:05> Time Out Performed: Yes <Katerine Godinez MD - Last Filed: 08/18/22 09:05> Side: right <Katerine Godinez MD - Last Filed: 08/18/22 09:05> Joint Reduction Location: shoulder <Katerine Godinez MD - Last Filed: 08/18/22 09:05> Manipulation used?: Yes <Katerine Godinez MD - Last Filed: 08/18/22 09:05> Analgesia: procedural sedation <Katerine Godinez MD - Last Filed: 08/18/22 09:05> Shoulder Technique Used (if applicable): traction/counter-traction <Katerine Godinez MD - Last Filed: 08/18/22 09:05> Technique used: traction/counter-traction <Katerine Godinez MD - Last Filed: 08/18/22 09:05> Post-reduction neuro vascular exam: no change <Katerine Godinez MD - Last Filed: 08/18/22 09:05> Post Reduction X-Ray Obtained: Yes <Katerine Godinez MD - Last Filed: 08/18/22 09:05> Post Reduction X-Ray Results: reduced <Katerine Godinez MD - Last Filed: 08/18/22 09:05> Splint Applied: Yes <Katerine Godinez MD - Last Filed: 08/18/22 09:05> Patient Tolerated Procedure: well <Katerine Godinez MD - Last Filed: 08/18/22 09:05>
[2022-08-18 05:22] LABS: Potassium* 3.4 mmol/L (3.6-5.1)
[2022-08-18] MEDS: KETAMINE HCL 100 MG/ML inj 10 MG IV (05:23)
[2022-08-18 05:24] LABS: Alanine Aminotransferase* 29 U/L (4-35); Alkaline Phosphatase* 135 U/L (40-150); Aspartate Amino Transferase* 33 U/L (12-35); Bilirubin Total* 0.1 mg/dL (0.1-1.5); Blood Urea Nitrogen* 5 mg/dL (5-24); Carbon Dioxide* 18 mmol/L (20-32); Creatinine* 0.4 mg/dL (0.5-1.5); Estimated Glomerular Filt Rate 124 ml/min; Total Protein* 9.3 g/dL (6.0-8.3)
[2022-08-18 05:25] LABS: Calcium* 8.7 mg/dL (8.4-10.6); Glucose* 138 mg/dL (60-115)
[2022-08-18 05:33] LABS: Ethanol* 0.35 % (0.01-0.03)
--- NOTE | 2022-08-18 05:55 | W.ANESCHARGE ---
Anesthesia Charges Start Date/Time Anesthesia Start Date: 08/18/22 Anesthesia Start Time: 04:50 Stop Date/Time Anesthesia Stop Date: 08/18/22 Anesthesia Stop Time: 05:35 Summary Emergency: Yes
[2022-08-18 06:49] LABS: Appearance Urine Clear (Clear); Bilirubin Urine Negative (Negative); Blood Urine 1+ (Negative); Color Urine Yellow (Yellow); Glucose Urine Negative (Negative); Ketones Urine Negative (Negative); Leukocyte Esterase Urine Negative (Negative); Nitrite Urine Negative (Negative); Protein Urine Negative (Negative); Urobilinogen Urine 0.2 (0.2-1.0); pH Urine 5.5 (5.0-8.5)
[2022-08-18 06:57] LABS: Amphetamine Screen Urine Negative (Negative); Barbiturate Screen Urine Negative (Negative); Benzodiazepines Screen Urine Negative (Negative); Cannabinoid Screen Urine Negative (Negative); Cocaine Screen Urine Negative (Negative); Methadone Screen Urine Negative (Negative); Methamphetamines Screen Urine Negative (Negative); Opiate Screen Urine Negative (Negative); Oxycodone Screen Urine Negative (Negative); Phencyclidine Screen Urine Negative (Negative); Tricyclic Antidepressant Urine Negative (Negative)
[2022-08-18 06:58] LABS: Bacteria Urine Few; Other Sediment Urine FEW YEAST; RBC Urine 0-2 (0-2); Squamous Epithelial Cell Urine Few (None-Few); WBC Urine 0-2 (0-5)
--- NOTE | 2022-08-18 07:00 | ED.NURSE ---
[employer] field technician via iPad throughout time in ER.
--- NOTE | 2022-08-18 07:18 | ED.NURSE ---
at 0501 ET tube at 21 at teeth. Size 7.0. Lung sounds clear, epi gastric negative. pt extubated at 0512
[2022-08-18 07:31] LABS: HCG Qualitative* Negative (Negative)
--- NOTE | 2022-08-18 07:35 | ED.NURSE ---
small laceration on the r side of her brow. this was cleansed with sterile saline and was glued per dr davenport. good approximation.
--- NOTE | 2022-08-18 07:46 | ED.NURSE ---
dr davenport explaining all that she has done this am. is understanding this, with the use of the i pad pipe threading machine operator. unable to grasp with r hand. sensation is returning some sensation as she is able to feel the touch. she is explaining that she may have permanent nerve damage. will continue to observe.
[2022-08-18] MEDS: TETANUS/DIPHTH/PERTUSSIS 0.5 ML SYRINGE IM (09:34)
--- NOTE | 2022-08-18 10:23 | ED.NURSE ---
has been up to br to void. is steady on feet. right hand continues to be flaccid, unable to grasp. dr chavarria was in and did speak to her about possible transfer to [facility]. did use i pad for interpretation. is here now.
--- NOTE | 2022-08-18 11:13 | ED.NURSE ---
report was called to Karena Lagunas at [facility].
--- NOTE | 2022-08-18 11:19 | ED.NURSE ---
did not give insty med rx per request of dr chavarria.
== END 2022-08-18 11:00 | disposition other institution (70) ==
PROVIDERS: Family Medicine; Emergency Provider Family Medicine
DX: S43.004A Unspecified dislocation of right shoulder joint, initial encounter (principal); W19.XXXA Unspecified fall, initial encounter; S42.301A Unspecified fracture of shaft of humerus, right arm, initial encounter for closed fracture; S01.91XA Laceration without foreign body of unspecified part of head, initial encounter; F10.129 Alcohol abuse with intoxication, unspecified
CPT/HCPCS: 01620; 36415; 70450; 72125; 73030; 73060; 73201; 80053; 80306; 81001; 82077; 84703; 85025; 87086; 90471; 90715; 94761; 96374; 96375; 96376; 99140; 99285; 99291; J0330; J2405; J2704; J3490; Q9967

== ENCOUNTER 2023-01-17 16:00 | Outpatient (RCR) | payer SELFPAY ==
--- NOTE | 2022-08-28 16:59 | OT.OPOE ---
OT Outpatient Ortho Eval OT Outpatient Ortho Eval Start: 08/28/22 13:23 Freq: Status: Active Protocol: Document 08/28/22 13:50 AMB (Rec: 08/28/22 16:52 AMB [id number]) E-signed By Delilah Brody, OTR/L, CLT, AFTER SCHOOL PROGRAM ASSISTANT OT OP Ortho Eval Details Type Type Eval Complexity Medium Insurance Information Insurance Information Comments Self Pay Outpatient History/Precautions Current Condition/Medical Diagnosis Referring Provider Dr Garcia Treatment Diagnosis RUE shld dislocation with non displaced hum head fx and axillary nn damage Date of Onset 08/18/22 Other Precautions Sling on most of the time, off for shower Medical Conditions None Other Conditions Pt is 47yo female who presented to the ER via EMS on 08/18/22 after falling down the steps outside her home. Pt was quite intoxicated with alcohol level of .35. Pt sustained a RUE shoulder dislocation, humeral head fx ( non-displaced) and a laceration to her head. Pt also sustained an axillary nerve injury with impaired motor and sensory function in her right hand. Transfer to [facility] was recommended, however, pt did not go to [facility] that night and was seen by Dr Garcia on 08/20/22 with recommendations for OT and will have EMG in 6 weeks. Pt was provided with a shoulder immobilizer in ER, Dr Garcia recommended continued use of immobilizer, off with shower. Medical/Functional History Medical History Reviewed Yes Prior Level of Function/Mobility Full, pain-free use of RUE Social History Employment Status Unemployed Current Occupation Pt works for a temp agency, currently not working. Oriented Mental Status No Concerns Ortho Subjective Subjective Subjective Pt is accompanied to OT by the Urdu interpretor. Pt states she feels she is doing better, states when she last saw the doctor, she could not move her wrist, today, she can move her wrist. Pt states she is able to dress and shower herself, except that her has to help her with her bra. Pt states her has also been doing the cooking and cleaning . Pt does not drive, so she has to rely on others for transportation to and from therapy, appointments, etc. Pt states her pain is pretty well controlled with Tylenol, no pain at rest but 8/10 with attempts at moving her shoulder. Pain Assessment Pain Present Pain Present Pain Reported Location Right Arm Description Radiating,Dull, Achy,Throbbing Intensity 8 Shoulder Goniometric ROM Shoulder Right Testing Position Supine, AAROM not AROM due to fx / pain Active Flexion (150-180 degrees) 90 L Query Text: Active Abduction (140-150 degrees) 70 L Active Internal Rotation (60-80 degrees) 75 Active External Rotation (80-100 degrees 0 L ) Elbow Goniometric Elbow Right Testing Position Supine Active Flexion (135-150 degrees) 120 L Active Extension (0 degrees) 0 H Wrist Goniometric Wrist Right Active Flexion (70-90 degrees) 55 L Active Extension (60-70 degrees) 10 L Active Ulnar Deviation (20-30 degrees) 10 L Active Radial Deviation (15-20 degrees) 15 Goniometric Comments Goniometric Comments Goniometric Comments Pt is able to make a fist to - 5cm from tip of 3rd digit to DPC, but very little active flex and 0 deg of active MP, PIP, or DIP extension. Edema Assessment Additional Information Comments Pt has very mild swelling appreciated in the dorsal hand and fingers. OT Objective Data Hand Hand Dominance Right Sensation Sensation Assessment Summary Comments Sensation is WNL from shoulder to wrist. Monofilament testin.83 dorsal thumb, 2nd-4th digits, 2.83 volar thumb, 4.31 index - 5th volar digits. OT Problems Problems Problems Decreased Strength,Decreased Range of Motion,Decreased Dexterity,Decreased Fine Motor ,Decreased Coordination,Other, Lifting,Gripping,Pinching Problems Comments Decreased sensation Other Problems Writing,Opening Containers, Dressing,Fasteners Patient Potential Good Assessment Assessment Assessment Pt presents to OT with significant limitations in her RUE shoulder, elbow, forearm, wrist and hand due to shoulder dislocation with non- displaced humeral head fracture and axillary nerve dammabe. Deficits include weakness throughout the shoulder, elbow, wrist and hand and minimal to no active movement of her fingers / thumb. These limitations impair pt's ability to cook clean and perform higher level dressing tasks. Pt will benefit from skilled OT intervention to address deficits and restore full, pain-free use of her RUE. Pt appears motivated and cooperative. Pt did very well during OT evaluation and was able to complete her prescribed exercises with minimal cues. OT Outpatient Treatment Plan Ortho Barriers Barriers to Goal Attainment Transportation and interpretator needs. Occupational Therapy Treatment Plan - OP Potential Rehabilitation Potential Good Set Goals Goals Set with Patient Yes Goals Goals 1. Pt will be independent and compliant with HEP in order to resume full, pain-free use of the involved UE. 3 weeks 2. Pt will demonstrate normal perceived sensation throughout the RUE to improve proprioception and normal movement in order to reduce risk for further injury. 8 weeks 3. Pt will demonstrate full, pain-free AROM of the involved UE in order to improve ability to grasp and hold. 8 weeks 4. Pt will demonstrate at least 4/5 mmt throughout RUE shoulder, elbow, forearm and wrist to improve ability to lift arm and reach to retrieve clothing from closet, plates from cupboard, etc. 12 weeks. 5. Pt will demonstrate pain- free stock wetter and pinch strength comparable to the uninvolved side in order to improve functional grasp, hold, reach, and lifting ability needed to complete self-care, leisure tasks, and work activities. 12 weeks. Progress set Treatment Plan Treatment Plan Evaluation,Edema Control,Joint Mobilization,Manual Therapy, Splinting,Ultrasound,E-Stim, Therapeutic Exercise, Therapeutic Activities,Self- Care/Home Management,Caregiver Training,Education,NMES, Neuromuscular Reeducation Expected Frequency 2-3x Week Expected Duration 10-12weeks Certification Certification I Certify That: Therapy Services Provided, Therapy Plan Established, Therapy Plan Reviewed Recertification Information Recertification Information Initial Certification Date 08/28/22 Recertification Due Date 11/26/22 Rehabilitation Potential Good Provider Signature Shows Agreement With POC & Medical Necessity Physician Comment/Change Comment or Changes Physician NPI Number #
== END 2023-01-20 09:27 | disposition home or self-care (01) ==
PROVIDERS: Visit Provider Orthopaedic Surgery Sports Medicine
DX: S44.91XA Injury of unspecified nerve at shoulder and upper arm level, right arm, initial encounter (principal); Z51.89 Encounter for other specified aftercare
CPT/HCPCS: 97035; 97110; 97112; 97140; 97166; T1013; L3806; L3933; X5282

== ENCOUNTER 2025-08-17 16:45 | Emergency (ER) | payer OTHER, SELFPAY ==
--- OUTSIDE RECORDS SUMMARY | 2025-08-17 16:47 | XMS_ITS | Clinical Summary ---
Author Organization [facility] Address [address] [place] [id number] Care Team Providers Care Addressograph Operator Name Role Phone Pcp, No Primary Care Provider Unavailabl e Allergies No known active allergies Medications triamcinolone 0.1 % ointmentIndicat ions:Acute eczema Apply to affected area twice daily 30 g 1 12/30/2023 Active lisinopriL (PRINIVIL; ZESTRIL) 20 mg tabletIndicatio ns:HTN (hypertension) Take 1 Tablet (20 mg) by mouth once daily. 30 Tablet 11 12/30/2023 Active chlorthalidone (HYGROTON) 25 mg tabletIndicatio ns:HTN (hypertension) Take 1 Tablet (25 mg) by mouth once daily. 30 Tablet 12/30/2023 Active Immunizations Immunization Administration Dates Next Due Tdap 08/18/2022 Social History Tobacco Use Types Packs/Day Years Used Date Smoking Tobacco: Never Smokeless Tobacco: Never Tobacco Cessation:Counseling Given: Yes Alcohol Use Standard Drinks/Week Comments Yes 0 (1 standard drink = 0.6 oz pur e alcohol) occ Social Connections Answer Date Recorded Frequency of Communication with Friends and Fami ly Not on file 12/30/2023 Comments No Sex and Gender Information Value Date Recorded Sex Assigned at Not on file Legal Sex Female 4:18 PM CDT Gender Identity Not on file Sexual Orientation Not on file Obstetrics History Last Filed Vital Signs Vital Sign Reading Time Taken Comments Blood Pressure 117/83 04/28/2024 10:47 AM CDT Pulse 84 04/28/2024 10:47 AM CDT Temperature - - Respiratory Rate - - Oxygen Saturation 100% 04/28/2024 10:47 AM CDT Inhaled Oxygen Concentration - - Weight 72.6 kg (160 lb 1.6 oz) 04/28/2024 10:47 AM CDT Height 146.3 cm (4' 9.6) 04/28/2024 10:47 AM CD T Body Mass Index 33.93 04/28/2024 10:47 AM CDT Plan of Treatment Health Maintenance Due Date Last Done Comments Depression screening for age 12+ 1988 HIV for age 15-65 1991 Hepatitis C screening for ag e 18-79 1994 Hepatitis B series for 19+ ( 1 of 3 - 19+ 3-dose series) 1995 Colonoscopy through age 75 2021 Lipids for age 45-75 2021 Mammogram for age 45-75 2021 BMI (ht and wt on same day) for age 18+ 04/28/2025 04/28/2024, 01/13/2024, 12/30/2023 COVID-19 vaccine series (2024- season) 2025 11/21/2021, 03/27/2021, 03/06/2021 Influenza Vaccine (#1) 2025 Pap test for age 21-65 03/13/2026 , 03/13/2023 Tetanus booster 08/18/2032 08/18/2022 RSV vaccine for adults or (1 - 1-dose 75+ series) 2051 Pneumococcal series for age 6-49 Aged Out No longer eligible b ased on patient's age to complete this topic Procedures Procedure Name Priority Date/Time Associated Diagnosis Comments HPV HIGH RISK Routine 03/13/2023 11:30 AM CDT from Last 3 Months or Most Recently Relevant to Health Maintenance Results * HPV HIGH RISK (03/13/2023 11:30 AM CDT) TYPE 16 Negative Negative 03/19/2023 5:24 AM CDT [facility] TYPE 18 Negative Negative 03/19/2023 5:24 AM CDT [facility] OTHER HIGH RISK TYPES Negative Negative 03/19/2023 5:24 AM CDT [facility] Other (Cervical) 03/13/2023 11:30 AM CDT 03/17/2023 3:34 PM CDT Narrative [facility] - 03/19/2023 5:24 AM CDT HPV types 16, 18, 31, 33, 35, 39, 45, 51, 52, 56, 58, 59, 66 and 68 DNA were undetectable or below the pre-set threshold. Methodology: Freda Kishan 4800 HPV Test us Keisha Dalton NP MICROBIOLOGY Final Resul t [facility] [address] [place] [address], [place] from Last 3 Months or Most Recently Relevant to Health Maintenance Care Teams Addressograph Operator Relationship Specialty Start Date End Date Pcp, No . PCP - General 12/30/23
[2025-08-17 16:52] VITALS: BP 132/82; PULSE 81; RESP 16; TEMP 36.9; O2SAT 98; BMI 33.1
--- NOTE | 2025-08-17 17:08 | ED.GENADULT ---
HPI - General Adult General Time Seen by Provider: 17:27 Date Seen: 08/17/25 Chief complaint: Allergic Reaction Stated complaint: allergic reaction on hands and feet, itchy/blister Time Seen by Provider: 08/17/25 17:08 Source: patient, RN notes reviewed and parts interpreter Mode of arrival: ambulatory Limitations: no limitations History of Present Illness HPI narrative: This patient is coming in for rash that started sometime before last week. She feels started on her hands after she started to use some plastic gloves couple weeks ago. She denies being outside, pulling any weeds, having any outside exposure. She has not been using any new products or lotions. She has been using Vaseline on the back of her hands since this started. Started on the back of her hands, they are quite itchy. That has settled down, she is noting in on her legs now. She is only on lisinopril for hypertension. She does not have any diabetes or any other known health issues. She goes to [facility]. The rash on her lower legs is very itchy. She has had no fevers. She works at a [employer] and will frequently have to wear gloves. Related Data Home Medications ?Medication ?Instructions ?Recorded ?Confirmed lisinopril 20 mg tablet 20 mg PO DAILY 08/17/25 08/17/25 Previous Rx's ?Medication ?Instructions ?Recorded cetirizine 10 mg capsule (Zyrtec) 10 mg PO DAILY #30 caps 08/17/25 prednisone 20 mg tablet 20 mg PO BID #10 tabs 08/17/25 Allergies Allergy/AdvReac Type Severity Reaction Status Date / Time No Known Drug Allergies Allergy Verified 08/17/25 16:51 Review of Systems Status of ROS: Reports: 6 or more systems reviewed and unremarkable except as noted in History and below PFSH PFS Surgical History Previous section ?Z98.891 - History of uterine scar from previous surgery (ICD-10) Social History Smoking Status: Never smoker Do you use any of these nicotine containing products: None Second hand tobacco smoke exposure: No How often do you have a drink containing alcohol: 2-3 times a week How often do you have six or more drinks on one occasion: Never AUDIT-C Alcohol total score: 3 Non-prescribed substance use: denies use service: No Exam Const: Vital Signs, click to edit/add: Vital Signs - 24 hr 08/17/25 16:52 Temperature 98.5 F Pulse Rate [Pulse Oximeter] 81 Respiratory Rate 16 Blood Pressure [Ri ght Upper Arm] 132/82 Pulse Oximetry 98 Oxygen Delivery Me thod Room Air This 50-year-old female is alert, interactive, no apparent distress. Do see her itching at her forearms bilaterally. Sclera clear, face atraumatic, no rash noted. Her dorsum of both of her hands is involved with thickened darkened skin in a plaque, it is on the dorsum of both hands. Does not extend onto the fingers or interdigital web spaces. On particularly her left lower extremity she has some irregular smaller circular areas that are more purplish in the center, there is a larger plaque that is along the distal medial leg above the ankle. It is weeping some, thickened, some small almost apparent tense little vesicles look to be present. She states the leg is more itchy. She may just have a few dots of nondescript rash on the right leg. There is no evidence of secondary infection or cellulitis. Lungs are clear, good air entry, no wheezing or crackles. Neck supple, no adenopathy. CV regular rate and rhythm, no murmur. Documenting provider has reviewed patient's vital signs: yes Course Course ED Course: This certainly looks to be inflammation and irritation of her skin. Reviewed with her that I think this is some form of dermatitis. Will have her trial a course of prednisone. Did look in the [facility] and does look like they cover generic Zyrtec. Will have her take that daily to help stop some of the itching. I have reviewed with her avoidance of soaps excessive washing. She can use Vaseline as she has been using as a emollient. Ultimately, I think she is going to need to see Dermatology to help further characterize and treat this. I have discussed with her that they may be necessary in figuring out treatment of this rash. Vital Signs Vital signs: Initial Vital Signs Temperature 98.5 F 08/17/25 16:52 Temperature Source Temporal Artery Scan 08/17/25 16:52 Pulse Rate 81 08/17/25 16:52 Respiratory Rate 16 08/17/25 16:52 Blood Pressure 132/82 08/17/25 16:52 Blood Pressure Mean 98 08/17/25 16:52 Blood Pressure Position Sitting 08/17/25 16:52 Pulse Oximetry 98 08/17/25 16:52 Oxygen Delivery Method Room Air 08/17/25 16:52 Vital Signs Temperature 98.5 F 08/17/25 16:52 Pulse Rate 81 08/17/25 16:52 Respiratory Rate 16 08/17/25 16:52 Blood Pressure 132/82 08/17/25 16:52 Pulse Oximetry 98 08/17/25 16:52 Oxygen Delivery Method Room Air 08/17/25 16:52 Temperature 98.5 F 08/17/25 16:52 Pulse Rate 81 08/17/25 16:52 Respiratory Rate 16 08/17/25 16:52 Blood Pressure 132/82 08/17/25 16:52 Pulse Oximetry 98 08/17/25 16:52 Oxygen Delivery Method Room Air 08/17/25 16:52 Discharge Plan Discharge Clinical Impression: Rash Patient Disposition: Home, Self-Care Condition: Stable Instructions: Dermatitis (ED) Additional Instructions: You can continue with Vaseline as ointment for your skin. Avoid any perfumed lotions. We will have you try oral prednisone to see if it starts to help settle the inflammation in the skin down. For itching, can try a daily Claritin or Zyrtec. You need to contact [facility] and see if they can help you get scheduled to see a adzing and boring machine feeder. If someone there is comfortable managing this and perhaps doing biopsy of the rash if not improving, they certainly can attempt to management. Ultimately, you may need a biopsy and Dermatology recommendations if this rash is not improving or going away. Activity Level: No Restrictions Prescriptions: New Zyrtec 10 mg capsule 10 mg PO DAILY Qty: 30 0RF prednisone 20 mg tablet 20 mg PO BID Qty: 10 0RF No Action lisinopril 20 mg tablet 20 mg PO DAILY Follow Up/Referrals: Provider,Not a Local [Primary Care Provider, Family Practice] Stand Alone Forms: [facility] Info Instructions
== END 2025-08-17 18:12 | disposition home or self-care (01) ==
LOC: ED 17:51
PROVIDERS: Emergency Provider Family Medicine
DX: R21 Rash and other nonspecific skin eruption (principal); T78.49XA Other allergy, initial encounter
CPT/HCPCS: 99282; 99283